=== PATIENT | male | born 1945 | race Caucasian/White ===

== ENCOUNTER 2018-04-02 14:00 | Inpatient (IN) | payer MEDICARE ==
[2018-04-02 15:26] LABS: % BASOPHILS 0.8 % (0.0-2.0); % EOSINOPHILS 6.8 % (0.0-5.0); % LYMPHOCYTES 32.7 % (20.0-50.0); % MONOCYTES 9.8 % (2.0-10.0); % NEUTROPHILS 49.9 % (40.0-80.0); BASOPHILE ABSOLUTE 0.1 Th/cumm (0-0.2); EOSINOPHILE ABSOLUTE 0.5 Th/cmm (0.1-0.4); HEMATOCRIT 42.1 % (41.0-60); HEMOGLOBIN 13.8 gm/dL (12-16); LYMPHOCYTE ABSOLUTE 2.5 Th/cmm (1.5-3.0); MEAN CELL VOLUME 89.4 fl (80-99); MEAN CORPUSCULAR HEMOGLOBIN 29.3 pg (27.0-31.0); MEAN CORPUSCULAR HGB CONC 32.8 pg (28.0-36.0); MONOCYTE ABSOLUTE 0.7 Th/cmm (0.3-1.0); NEUTROPHILE ABSOLUTE 3.7 Th/cmm (1.8-8.0); PLATELET COUNT 275 Th/cmm (150-400); RED BLOOD COUNT 4.71 Mil/cmm (3.80-5.80); RED CELL DISTRIBUTION WIDTH 12.8 % (11.5-20.0); WHITE BLOOD COUNT 7.5 Th/cmm (4.8-10.8)
[2018-04-02 15:46] LABS: ALB/GLOB RATIO 1.5 (1.0-1.8); ALBUMIN 3.5 gm/dL (4.2-5.5); ALKALINE PHOSPHATASE 85 U/L (34-104); ANION GAP 10.3 (7.0-16.0); BILIRUBIN,TOTAL 0.4 mg/dL (0.3-1.0); BUN - UREA NITROGEN 11 mg/dL (7-25); CALCIUM SERUM 8.4 mg/dL (8.6-10.3); CARBON DIOXIDE 25.7 mEq/L (21.0-31.0); CHLORIDE 106 mEq/L (98-107); CHOLESTEROL 72 mg/dL (<200); CREATININE - SERUM 0.7 mg/dL (0.7-1.3); GLUCOSE 101 mg/dL (70-105); HDL -HIGH DENSITY LIPOPROTEIN 22 mg/dL (23-92); SGOT 17 U/L (13-39); SGPT/ALT 18 U/L (7-52); SODIUM SERUM 138 mEq/L (136-145); TOTAL PROTEIN,SERUM 5.9 gm/dL (6.0-8.3); TRIGLYCERIDES 99 mg/dL (<150)
[2018-04-02 15:48] LABS: ACETAMINOPHEN < 10.0 ug/mL (10.0-30.0); SALICYLATES (ASPIRIN) < 25.0 mg/L (30.0-100.0)
--- NOTE | 2018-04-02 15:51 | ED Physician Chart ---
ED Chief Complaint/HPI - Patient Information Date Seen:: 04/02/18 Time Seen:: 14:40 Chief Complaint:: Depression History of Present Illness:: onset x 3 days of depressed behavior; no report of trauma, SIs, H/As, LOC, ALOC , AMS, neck pain, C/P, SOB, Abd. Pain, A/N/V/D/C, fever, chills, or urinary s/s Allergies:: Allergies Allergy/AdvReac Type Severity Reaction Status Date / Time No Known Allergies Allergy Verified 04/02/18 14:40 Vitals:: Vital Signs - 8 hr 04/02/18 04/02/18 14:40 15:04 Temp 98 F 97.8 F HR 60 57 RR 19 15 BP 110/75 O2 Sat % 99 97 Historian:: Patient, EMS Review:: Nurse's Note Reviewed, Old Chart Reviewed, EMS run form Reviewed ED Review of Systems - Review of Systems General/Constitutional: No fever, No chills, No weight loss, No weakness, No diaphoresis, No edema, No loss of appetite Skin: No skin lesions, No rash, No bruising Head: No headache, No light-headedness Eyes: No loss of vision, No pain, No diplopia ENT: No earache, No nasal drainage, No sore throat, No tinnitus Neck: No neck pain, No swelling, No thyromegaly, No stiffness, No mass noted Cardio Vascular: No chest pain, No palpitations, No PND, No orthopnea, No edema Pulmonary: No SOB, No cough, No sputum, No wheezing GI: No nausea, No vomiting, No diarrhea, No pain, No melena, No hematochezia, No constipation, No hematemesis G/U: No dysuria, No frequency, No hematuria, No nacturia Musculoskeletal: No bone or joint pain, No back pain, No muscle pain Endocrine: No polyuria, No polydipsia Psychiatric: Prior psych history, Depression, Anxiety, No suicidal ideation, No homicidal ideation, No auditory hallucination, No visual hallucination Hematopoietic: No bruising, No lymphadenopathy Allergic/Immuno: No urticaria, No angioedema Neurological: No syncope, No focal symptoms, No weakness, No paresthesia, No headache, No seizure, No dizziness, No confusion, No vertigo ED Past Medical History - Past Medical History Obtainable: Yes Past Medical History: HTN, Dyslipidemia Family History: HTN Social History: Non Smoker, No Alcohol, No Drug Use, Single, Care Facility Surgical History: None Psychiatricy History: Depression, Schizophrenia, Bipolar Medication: Reviewed Family Medical History - Family Member Mother History Unknown: Yes ED Physical Exam - Physical Examination General/Constitutional: Awake, Well-developed, well-nourished, Alert, No distress, GCS 15, Non-toxic appearing, Ambulatory Head: Atraumatic Eyes: Lids, conjuctiva normal, PERRL, EOMI Skin: Nl inspection, No rash, No skin lesions, No ecchymosis, Well hydrated, No lymphadenopathy ENMT: External ears, nose nl, TM canals nl, Nasal exam nl, Lips, teeth, gums nl , Oropharynx nl, Tonsils nl Neck: Nontender, Full ROM w/o pain, No JVD, No nuchal rigidity, No bruit, No mass, No stridor Other Neck comments:: no meningeal signs; supple; no cervical tenderness Respiratory: Nl effort/Exclusion, Clear to Auscultation, No Wheeze/Rhonchi/Rales Cardio Vascular: RRR, No murmur, gallop, rubs, NL S1 S2, Carotid/Femoral/Distal pulses equal bilaterally GI: No tenderness/rebounding/guarding, No organomegaly, No hernia, Normal BS's, Nondistended, No mass/bruits, No McBurney tenderness Other GI comments:: no pulsatile masses : No CVA tenderness Extremities: No tenderness or effusion, Full ROM, normal strength in all extremities, No edema, Normal digits & nails Neuro/Psych: Alert/oriented, DTR's symmetric, Normal sensory exam, Normal motor strength, Judgement/insight normal, Mood normal, Normal gait, No focal deficits Other Neuro/Psych comments:: + Psychomotor Retardation; Mood/Affect: Labile; no SIs Misc: Normal back, No paraspinal tenderness ED Labs/Radiology/EKG Results - Lab Results Results: Laboratory Tests 04/02/18 04/02/18 15:18 15:18 WBC 7.5 RBC 4.71 Hgb 13.8 Hct 42.1 MCV 89.4 MCH 29.3 MCHC Differential 32.8 RDW 12.8 Plt Count 275 MPV 8.0 Neutrophils % 49.9 Lymphocytes % 32.7 Monocytes % 9.8 Eosinophils % 6.8 H Basophils % 0.8 Sodium 138 Potassium 4.0 Chloride 106 Carbon Dioxide 25.7 Anion Gap 10.3 BUN 11 Creatinine 0.7 Est GFR ( Amer) TNP Est GFR (Non-Af Amer) TNP BUN/Creatinine Ratio 15.7 Glucose 101 Calcium 8.4 L Total Bilirubin 0.4 AST 17 ALT 18 Alkaline Phosphatase 85 Total Protein 5.9 L Albumin 3.5 L Globulin 2.4 Albumin/Globulin Ratio 1.5 Triglycerides 99 Cholesterol 72 LDL Cholesterol Direct 38 L HDL Cholesterol 22 L Salicylates < 25.0 L Acetaminophen < 10.0 L Ethyl Alcohol < 10 Comments:: Reviewed - EKG Interpretations EKG Time:: 15:35 Rate & Rhythm: 55; SB Comments:: Inverted T-Waves; non-specific st-t changes ED Septic Shock - . Is Septic Shock (SBP<90, OR Lactate>4 mmol\L) present?: No - <6hrs of presentation: Vital Signs: Vital Signs - 8 hr 04/02/18 04/02/18 14:40 15:04 Temp 98 F 97.8 F HR 60 57 RR 19 15 BP 110/75 O2 Sat % 99 97 ED Reassessment (Disposition) - Reassessment Reassessment Condition:: Improved - Diagnosis Diagnosis:: Depression; Psychosis; Medical Clearance; Schizophrenia - Aftercare/Follow up Instructions Aftercare/Follow-Up Instructions:: Counseled pt regarding lab results/diagnosis & need follow up, Counseled pt & family regarding lab results/diagnosis & need follow up - Patient Disposition Discharge/Transfer:: Acute Care w/in this hosp Admitted to:: [facility] Condition at Disposition:: Stable, Improved
[2018-04-02 17:30] LABS: URINE SOURCE CLEAN C
[2018-04-02 17:32] LABS: AMPHETAMINE URINE NEGATIVE (NEGATIVE); BARBITURATES URINE NEGATIVE (NEGATIVE); BENZODIAZEPINES QUAL URINE POSITIVE (NEGATIVE); CANNABINOID THC NEGATIVE (NEGATIVE); COCAINE METABOLITE QUAL URINE NEGATIVE (NEGATIVE); METHADONE URINE NEGATIVE (NEGATIVE); METHAMPHETAMINES QUAL URINE NEGATIVE (NEGATIVE); OPIATES (MORPHINE) QUAL. URINE NEGATIVE (NEGATIVE); PHENCYCLIDINE (PCP) URINE NEGATIVE (NEGATIVE); TRICYCLICS (TCA) QUAL. URINE NEGATIVE (NEGATIVE)
[2018-04-02 17:41] LABS: URINE BILIRUBIN NEGATIVE (NEGATIVE); URINE CLARITY CLEAR (CLEAR); URINE COLOR YELLOW; URINE GLUCOSE (UA) NEGATIVE (NEGATIVE); URINE KETONE NEGATIVE (NEGATIVE)
[2018-04-02 17:42] LABS: URINE BACTERIA FEW /hpf (NONE SEEN); URINE BLOOD NEGATIVE (NEGATIVE); URINE EPITHELIAL CELLS FEW /lpf (FEW); URINE LEUKOCYTE ESTERASE NEGATIVE (NEGATIVE); URINE MICROSCOPIC INDICATED? YES; URINE NITRATE NEGATIVE (NEGATIVE); URINE PROTEIN NEGATIVE (NEGATIVE); URINE RBC 0-2 /hpf (0-5); URINE UROBILINOGEN 0.2 E.U./dL (0.2 - 1.0)
[2018-04-02 21:28] LABS: A1C % 6.1 % (4.0-6.0)
[2018-04-02 22:46] VITALS: BP 106/68
[2018-04-02] MEDS ORDERED: Maalox 30 mL Cup PO PRN (22:55)
[2018-04-03] MEDS: Multivitamin Tab PO SCH (09:45)
--- NOTE | 2018-04-03 15:30 | Psychiatric Evaluation ---
DATE OF SERVICE: 04/02/2018 ADMISSION INITIAL EVALUATION AND MENTAL STATUS EXAM PATIENT'S AGE: 72-year-old. SEX: Male. PHYSICIAN: Pauline Sands MD, MPH CHIEF COMPLAINT: Depression. HISTORY OF PRESENT ILLNESS: The patient is a 72-year-old male who was admitted to the hospital because of increased depression. The patient has been having 3 days of severe depression and also has been complaining of anxiety and withdrawn. The patient also has been feeling hopeless and helpless. He also has been interacting minimally with others. The patient also has ineffective coping and has been having intermittent thoughts of not wanting to live and wants to . The patient also has been having difficulty sleeping at night and has been having periods of disorientation. Also, his appetite is much decreased. PAST PSYCHIATRIC HISTORY: The patient has a history of depression, but he has been taking only Zyprexa. PAST MEDICAL HISTORY: The patient has a history of hypertension. SOCIAL HISTORY: The patient lives in [facility]. No known alcohol or drug use. ALLERGIES: No known allergies. MENTAL STATUS EXAMINATION: The patient appears older than his stated age. Anxious. Sad affect. Depressed mood. Cooperative. Thought processes are mainly goal directed. The patient denies any auditory or visual hallucinations or delusions. The patient denies any current suicidal or homicidal ideations. The patient is alert and oriented to the situation and place but not to date. Impaired immediate memory, but intact recent and remote memories. Poor insight and poor judgment. Seems to be of average intelligence based on his verbal ability. ASSESSMENT: PRIMARY DIAGNOSIS: Major depression, severe, recurrent, without psychotic features. TREATMENT PLAN: We will monitor the patient's behavior closely. We will add Lexapro and will adjust the dose. ESTIMATED LENGTH OF STAY: 5-7 days. THE PATIENT'S STRENGTHS AND WEAKNESSES: The patient's strength is not clear at this time. Weaknesses is ineffective coping. AFTER DISCHARGE PLAN: Outpatient treatment and followup will continue as an outpatient. CRITERIA FOR DISCHARGE: The patient will not be as depressed and will stabilize psychotropic medications and will establish outpatient treatment plans. JOB# [id number]
[2018-04-03] MEDS: Atorvastatin Calcium 10 MG TAB PO SCH (21:06)
[2018-04-04] MEDS: Multivitamin Tab PO SCH (09:51)
[2018-04-04] MEDS: Atorvastatin Calcium 10 MG TAB PO SCH (21:38)
--- NOTE | 2018-04-05 01:30 | Progress Notes ---
DATE: 04/04/2018 PSYCHIATRIC PROGRESS NOTE SUBJECTIVE: Chart reviewed and the patient interviewed. Also discussed the patient's condition with the staff and reviewed records and labs. The patient is still severely depressed and withdrawn. The patient also is interacting minimally with peers and others. He also is still feeling hopeless and helpless. The patient also is guarded. Otherwise, the patient is compliant with treatment and compliant with taking his medications with no side effects of medications. ASSESSMENT: The patient is still in a depressed mood. TREATMENT PLAN: Continue to monitor his behavior and his condition closely. Also, continue Lexapro at same dose. Also, continue to work on his ineffective coping and followup. JOB# [id number]
[2018-04-05] MEDS: Multivitamin Tab PO SCH (08:11)
[2018-04-05] MEDS: Escitalopram Oxalate 5 mg Tab PO SCH (08:12)
--- NOTE | 2018-04-05 09:58 | Progress Notes ---
DATE: 04/05/2018 SUBJECTIVE: A 72-year-old male admitted to the hospital because of worsening severe depression, complaining of anxiety, hopeless and helpless illness, minimally interactive and ineffective coping. The patient slept for about 6-7 hours. No agitation noted to be confused, sometimes withdrawn. AO to name, place, not year, not month, mostly isolative in his room. ASSESSMENT: The patient remains symptomatic, confused, withdrawn bouts of anger or agitation. PLAN: We will continue to monitor. Medications were noted, currently on Zyprexa. No overt side effects. JOB# [id number]
[2018-04-05] MEDS: Atorvastatin Calcium 10 MG TAB PO SCH (21:10)
--- NOTE | 2018-04-06 07:02 | Progress Notes ---
DATE: 04/06/2018 SUBJECTIVE: A 72-year-old male here because of worsening depression, isolation, hopelessness, despair. The patient to continuing to attest to depression, social withdrawal, pleasant upon approach, but somewhat confused, still attesting to depression, sadness. Sleeping fairly well, eating fairly well. The patient was in group room yesterday, but not participating games. ASSESSMENT: The patient remains symptomatic, depressed, and ongoing concerns about his level of depression. PLAN: We will continue Lexapro, given his ongoing symptoms, there are continued safety concerns. Increase socialization was recommended. PSYCHIATRIC# [id number]
[2018-04-06] MEDS: Multivitamin Tab PO SCH (08:37)
[2018-04-06] MEDS: Escitalopram Oxalate 5 mg Tab PO SCH (08:37)
--- NOTE | 2018-04-06 13:06 | General Progress Note ---
Subjective - Review of Systems Events since last encounter: patient is withdrawn depressed no cp,sob Objective - Results Result Diagrams: 04/02/18 15:18 04/02/18 15:18 Recent Labs: Laboratory Last Values WBC 7.5 Th/cmm (4.8-10.8) 04/02/18 15:18 RBC 4.71 Mil/cmm (3.80-5.80) 04/02/18 15:18 Hgb 13.8 gm/dL (12-16) 04/02/18 15:18 Hct 42.1 % (41.0-60) 04/02/18 15:18 MCV 89.4 fl (80-99) 04/02/18 15:18 MCH 29.3 pg (27.0-31.0) 04/02/18 15:18 MCHC Differential 32.8 pg (28.0-36.0) 04/02/18 15:18 RDW 12.8 % (11.5-20.0) 04/02/18 15:18 Plt Count 275 Th/cmm (150-400) 04/02/18 15:18 MPV 8.0 fl 04/02/18 15:18 Neutrophils % 49.9 % (40.0-80.0) 04/02/18 15:18 Lymphocytes % 32.7 % (20.0-50.0) 04/02/18 15:18 Monocytes % 9.8 % (2.0-10.0) 04/02/18 15:18 Eosinophils % 6.8 % (0.0-5.0) H 04/02/18 15:18 Basophils % 0.8 % (0.0-2.0) 04/02/18 15:18 Sodium 138 mEq/L (136-145) 04/02/18 15:18 Potassium 4.0 mEq/L (3.5-5.1) 04/02/18 15:18 Chloride 106 mEq/L (98-107) 04/02/18 15:18 Carbon Dioxide 25.7 mEq/L (21.0-31.0) 04/02/18 15:18 Anion Gap 10.3 (7.0-16.0) 04/02/18 15:18 BUN 11 mg/dL (7-25) 04/02/18 15:18 Creatinine 0.7 mg/dL (0.7-1.3) 04/02/18 15:18 Est GFR ( Amer) TNP 04/02/18 15:18 Est GFR (Non-Af Amer) TNP 04/02/18 15:18 BUN/Creatinine Ratio 15.7 04/02/18 15:18 Glucose 101 mg/dL (70-105) 04/02/18 15:18 POC Glucose 100 MG/DL (70 - 105) 04/03/18 03:12 Hemoglobin A1c % 6.1 % (4.0-6.0) H 04/02/18 15:18 Calcium 8.4 mg/dL (8.6-10.3) L 04/02/18 15:18 Total Bilirubin 0.4 mg/dL (0.3-1.0) 04/02/18 15:18 AST 17 U/L (13-39) 04/02/18 15:18 ALT 18 U/L (7-52) 04/02/18 15:18 Alkaline Phosphatase 85 U/L (34-104) 04/02/18 15:18 Troponin I 0.02 ng/mL (0.01-0.05) 04/02/18 15:18 Total Protein 5.9 gm/dL (6.0-8.3) L 04/02/18 15:18 Albumin 3.5 gm/dL (4.2-5.5) L 04/02/18 15:18 Globulin 2.4 gm/dL 04/02/18 15:18 Albumin/Globulin Ratio 1.5 (1.0-1.8) 04/02/18 15:18 Triglycerides 99 mg/dL (<150) 04/02/18 15:18 Cholesterol 72 mg/dL (<200) 04/02/18 15:18 LDL Cholesterol Direct 38 mg/dL (75-193) L 04/02/18 15:18 HDL Cholesterol 22 mg/dL (23-92) L 04/02/18 15:18 TSH 1.06 uIU/ml (0.34-5.60) 04/02/18 15:18 Urine Source CLEAN C 04/02/18 16:00 Urine Color YELLOW 04/02/18 16:00 Urine Clarity CLEAR (CLEAR) 04/02/18 16:00 Urine pH 6.0 (4.6 - 8.0) 04/02/18 16:00 Ur Specific [place] < -1.005 (1.005-1.030) L 04/02/18 16:00 Urine Protein NEGATIVE mg/dL (NEGATIVE) 04/02/18 16:00 Urine Glucose (UA) NEGATIVE mg/dL (NEGATIVE) 04/02/18 16:00 Urine Ketones NEGATIVE mg/dL (NEGATIVE) 04/02/18 16:00 Urine Blood NEGATIVE (NEGATIVE) 04/02/18 16:00 Urine Nitrate NEGATIVE (NEGATIVE) 04/02/18 16:00 Urine Bilirubin NEGATIVE (NEGATIVE) 04/02/18 16:00 Urine Urobilinogen 0.2 E.U./dL (0.2 - 1.0) 04/02/18 16:00 Ur Leukocyte Esterase NEGATIVE (NEGATIVE) 04/02/18 16:00 Urine RBC 0-2 /hpf (0-5) H 04/02/18 16:00 Urine WBC 2-5 /hpf (0-5) 04/02/18 16:00 Ur Epithelial Cells FEW /lpf (FEW) 04/02/18 16:00 Urine Bacteria FEW /hpf (NONE SEEN) 04/02/18 16:00 Urine Mucus MODERATE /lpf (FEW) 04/02/18 16:00 Salicylates < 25.0 mg/L (30.0-100.0) L 04/02/18 15:18 Urine Opiates Screen NEGATIVE (NEGATIVE) 04/02/18 16:00 Urine Methadone Screen NEGATIVE (NEGATIVE) 04/02/18 16:00 Acetaminophen < 10.0 ug/mL (10.0-30.0) L 04/02/18 15:18 Ur Barbiturates Screen NEGATIVE (NEGATIVE) 04/02/18 16:00 Ur Tricyclics Screen NEGATIVE (NEGATIVE) 04/02/18 16:00 Ur Phencyclidine Scrn NEGATIVE (NEGATIVE) 04/02/18 16:00 Amphetamines Screen NEGATIVE (NEGATIVE) 04/02/18 16:00 U Methamphetamines Scrn NEGATIVE (NEGATIVE) 04/02/18 16:00 U Benzodiazepines Scrn POSITIVE (NEGATIVE) H 04/02/18 16:00 U Cocaine Metab Screen NEGATIVE (NEGATIVE) 04/02/18 16:00 U Cannabinoids Screen NEGATIVE (NEGATIVE) 04/02/18 16:00 Ethyl Alcohol < 10 mg/dL (0-10) 04/02/18 15:18 RPR NONREACTIVE (NONREACTIVE) 04/02/18 15:18 - Physical Exam Vitals and I&O: Vital Signs Temp 98.1 F 04/06/18 06:37 Pulse 69 04/06/18 08:38 Resp 17 04/06/18 10:26 BP 111/72 04/06/18 08:38 Pulse Ox 98 04/06/18 06:37 Intake & Output 04/05/18 04/06/18 04/06/18 18:59 06:59 18:59 Intake Total 1000 Balance 1000 Intake: Oral 1000 Other: # Voids 4 # Bowel Movements 1 Stool Characteristics Soft Formed Active Medications: Current Medications Acetaminophen (Tylenol) 650 mg PO Q4HR PRN PRN Reason: Mild Pain / Temp above 100 Stop: 06/01/18 22:54 Acetaminophen (Tylenol) 325 mg PO Q4HR PRN PRN Reason: Pain (Mild) Stop: 06/01/18 23:19 Al Hydrox/Mg Hydrox/Simethicone (Maalox) 30 ml PO Q4HR PRN PRN Reason: GI DISTRESS Stop: 06/01/18 22:54 Atorvastatin Calcium (Lipitor) 20 mg PO HS ASHLEY Stop: 06/02/18 20:59 Last Admin: 04/05/18 21:10 Dose: 20 mg Escitalopram Oxalate (Lexapro) 5 mg PO DAILY [facility]; Protocol Stop: 06/03/18 08:59 Last Admin: 04/06/18 08:37 Dose: 5 mg Lisinopril (Zestril) 5 mg PO DAILY ASHLEY Stop: 06/02/18 08:59 Last Admin: 04/06/18 08:38 Dose: 5 mg Lorazepam (Ativan) 0.5 mg PO Q4HR PRN; Protocol PRN Reason: Anxiety Stop: 05/02/18 22:54 Metoprolol Tartrate (Lopressor) 25 mg PO DAILY [facility] Stop: 06/02/18 08:59 Last Admin: 04/06/18 08:38 Dose: 25 mg Multivitamins/Vitamin C (Theragran) 1 tab PO DAILY [facility] Stop: 06/02/18 08:59 Last Admin: 04/06/18 08:37 Dose: 1 tab Olanzapine (Zyprexa) 5 mg PO DAILY [facility]; Protocol Stop: 06/02/18 08:59 Last Admin: 04/06/18 08:37 Dose: 5 mg Zolpidem Tartrate (Ambien) 5 mg PO HS PRN PRN Reason: Insomnia Stop: 06/01/18 22:54
[2018-04-06] MEDS: Atorvastatin Calcium 10 MG TAB PO SCH (20:26)
[2018-04-07] MEDS: Multivitamin Tab PO SCH (09:27)
[2018-04-07] MEDS: Escitalopram Oxalate 5 mg Tab PO SCH (09:27)
--- NOTE | 2018-04-07 16:43 | Internal Medicine Prog Note ---
Internal Medicine Objective - Results Result Diagrams: 04/02/18 15:18 04/02/18 15:18 Recent Labs: Laboratory Last Values WBC 7.5 Th/cmm (4.8-10.8) 04/02/18 15:18 RBC 4.71 Mil/cmm (3.80-5.80) 04/02/18 15:18 Hgb 13.8 gm/dL (12-16) 04/02/18 15:18 Hct 42.1 % (41.0-60) 04/02/18 15:18 MCV 89.4 fl (80-99) 04/02/18 15:18 MCH 29.3 pg (27.0-31.0) 04/02/18 15:18 MCHC Differential 32.8 pg (28.0-36.0) 04/02/18 15:18 RDW 12.8 % (11.5-20.0) 04/02/18 15:18 Plt Count 275 Th/cmm (150-400) 04/02/18 15:18 MPV 8.0 fl 04/02/18 15:18 Neutrophils % 49.9 % (40.0-80.0) 04/02/18 15:18 Lymphocytes % 32.7 % (20.0-50.0) 04/02/18 15:18 Monocytes % 9.8 % (2.0-10.0) 04/02/18 15:18 Eosinophils % 6.8 % (0.0-5.0) H 04/02/18 15:18 Basophils % 0.8 % (0.0-2.0) 04/02/18 15:18 Sodium 138 mEq/L (136-145) 04/02/18 15:18 Potassium 4.0 mEq/L (3.5-5.1) 04/02/18 15:18 Chloride 106 mEq/L (98-107) 04/02/18 15:18 Carbon Dioxide 25.7 mEq/L (21.0-31.0) 04/02/18 15:18 Anion Gap 10.3 (7.0-16.0) 04/02/18 15:18 BUN 11 mg/dL (7-25) 04/02/18 15:18 Creatinine 0.7 mg/dL (0.7-1.3) 04/02/18 15:18 Est GFR ( Amer) TNP 04/02/18 15:18 Est GFR (Non-Af Amer) TNP 04/02/18 15:18 BUN/Creatinine Ratio 15.7 04/02/18 15:18 Glucose 101 mg/dL (70-105) 04/02/18 15:18 POC Glucose 100 MG/DL (70 - 105) 04/03/18 03:12 Hemoglobin A1c % 6.1 % (4.0-6.0) H 04/02/18 15:18 Calcium 8.4 mg/dL (8.6-10.3) L 04/02/18 15:18 Total Bilirubin 0.4 mg/dL (0.3-1.0) 04/02/18 15:18 AST 17 U/L (13-39) 04/02/18 15:18 ALT 18 U/L (7-52) 04/02/18 15:18 Alkaline Phosphatase 85 U/L (34-104) 04/02/18 15:18 Troponin I 0.02 ng/mL (0.01-0.05) 04/02/18 15:18 Total Protein 5.9 gm/dL (6.0-8.3) L 04/02/18 15:18 Albumin 3.5 gm/dL (4.2-5.5) L 04/02/18 15:18 Globulin 2.4 gm/dL 04/02/18 15:18 Albumin/Globulin Ratio 1.5 (1.0-1.8) 04/02/18 15:18 Triglycerides 99 mg/dL (<150) 04/02/18 15:18 Cholesterol 72 mg/dL (<200) 04/02/18 15:18 LDL Cholesterol Direct 38 mg/dL (75-193) L 04/02/18 15:18 HDL Cholesterol 22 mg/dL (23-92) L 04/02/18 15:18 TSH 1.06 uIU/ml (0.34-5.60) 04/02/18 15:18 Urine Source CLEAN C 04/02/18 16:00 Urine Color YELLOW 04/02/18 16:00 Urine Clarity CLEAR (CLEAR) 04/02/18 16:00 Urine pH 6.0 (4.6 - 8.0) 04/02/18 16:00 Ur Specific [place] < -1.005 (1.005-1.030) L 04/02/18 16:00 Urine Protein NEGATIVE mg/dL (NEGATIVE) 04/02/18 16:00 Urine Glucose (UA) NEGATIVE mg/dL (NEGATIVE) 04/02/18 16:00 Urine Ketones NEGATIVE mg/dL (NEGATIVE) 04/02/18 16:00 Urine Blood NEGATIVE (NEGATIVE) 04/02/18 16:00 Urine Nitrate NEGATIVE (NEGATIVE) 04/02/18 16:00 Urine Bilirubin NEGATIVE (NEGATIVE) 04/02/18 16:00 Urine Urobilinogen 0.2 E.U./dL (0.2 - 1.0) 04/02/18 16:00 Ur Leukocyte Esterase NEGATIVE (NEGATIVE) 04/02/18 16:00 Urine RBC 0-2 /hpf (0-5) H 04/02/18 16:00 Urine WBC 2-5 /hpf (0-5) 04/02/18 16:00 Ur Epithelial Cells FEW /lpf (FEW) 04/02/18 16:00 Urine Bacteria FEW /hpf (NONE SEEN) 04/02/18 16:00 Urine Mucus MODERATE /lpf (FEW) 04/02/18 16:00 Salicylates < 25.0 mg/L (30.0-100.0) L 04/02/18 15:18 Urine Opiates Screen NEGATIVE (NEGATIVE) 04/02/18 16:00 Urine Methadone Screen NEGATIVE (NEGATIVE) 04/02/18 16:00 Acetaminophen < 10.0 ug/mL (10.0-30.0) L 04/02/18 15:18 Ur Barbiturates Screen NEGATIVE (NEGATIVE) 04/02/18 16:00 Ur Tricyclics Screen NEGATIVE (NEGATIVE) 04/02/18 16:00 Ur Phencyclidine Scrn NEGATIVE (NEGATIVE) 04/02/18 16:00 Amphetamines Screen NEGATIVE (NEGATIVE) 04/02/18 16:00 U Methamphetamines Scrn NEGATIVE (NEGATIVE) 04/02/18 16:00 U Benzodiazepines Scrn POSITIVE (NEGATIVE) H 04/02/18 16:00 U Cocaine Metab Screen NEGATIVE (NEGATIVE) 04/02/18 16:00 U Cannabinoids Screen NEGATIVE (NEGATIVE) 04/02/18 16:00 Ethyl Alcohol < 10 mg/dL (0-10) 04/02/18 15:18 RPR NONREACTIVE (NONREACTIVE) 04/02/18 15:18 - Physical Exam Vitals and I&O: Vital Signs Temp 98.1 F 04/07/18 14:00 Pulse 67 04/07/18 14:00 Resp 20 04/07/18 14:00 BP 99/59 04/07/18 14:00 Pulse Ox 97 04/07/18 14:00 Intake & Output 04/06/18 04/07/18 04/07/18 18:59 06:59 18:59 Intake Total 800 120 Balance 800 120 Intake: Oral 800 120 Other: # Voids 3 3 # Bowel Movements 1 Stool Characteristics Soft Soft Soft Formed Formed Formed Active Medications: Current Medications Acetaminophen (Tylenol) 650 mg PO Q4HR PRN PRN Reason: Mild Pain / Temp above 100 Stop: 06/01/18 22:54 Acetaminophen (Tylenol) 325 mg PO Q4HR PRN PRN Reason: Pain (Mild) Stop: 06/01/18 23:19 Al Hydrox/Mg Hydrox/Simethicone (Maalox) 30 ml PO Q4HR PRN PRN Reason: GI DISTRESS Stop: 06/01/18 22:54 Atorvastatin Calcium (Lipitor) 20 mg PO HS ASHLEY Stop: 06/02/18 20:59 Last Admin: 04/06/18 20:26 Dose: 20 mg Escitalopram Oxalate (Lexapro) 5 mg PO DAILY [facility]; Protocol Stop: 06/03/18 08:59 Last Admin: 04/07/18 09:27 Dose: 5 mg Lisinopril (Zestril) 5 mg PO DAILY [facility] Stop: 06/02/18 08:59 Last Admin: 04/07/18 09:26 Dose: 5 mg Lorazepam (Ativan) 0.5 mg PO Q4HR PRN; Protocol PRN Reason: Anxiety Stop: 05/02/18 22:54 Metoprolol Tartrate (Lopressor) 25 mg PO DAILY [facility] Stop: 06/02/18 08:59 Last Admin: 04/07/18 09:26 Dose: 25 mg Multivitamins/Vitamin C (Theragran) 1 tab PO DAILY [facility] Stop: 06/02/18 08:59 Last Admin: 04/07/18 09:27 Dose: 1 tab Olanzapine (Zyprexa) 5 mg PO DAILY [facility]; Protocol Stop: 06/02/18 08:59 Last Admin: 04/07/18 09:27 Dose: 5 mg Zolpidem Tartrate (Ambien) 5 mg PO HS PRN PRN Reason: Insomnia Stop: 06/01/18 22:54
--- NOTE | 2018-04-08 18:27 | Discharge Summary ---
DATE OF DISCHARGE: 04/07/2018 FINAL DIAGNOSIS AND PRIMARY DIAGNOSIS: Major depression, severe, recurrent, without psychotic features. REASON FOR HOSPITALIZATION: The patient was admitted to the hospital because of depression and because of severe anxiety. The patient also was withdrawn and is feeling hopeless and helpless and interacting minimally with others. HOSPITAL COURSE: The patient continued to be in depressed mood and withdrawn. The patient also was interacting minimally with others. The patient was started on Lexapro was at 5 mg every day. Gradually, the patient's affect was brighter. The patient was less depressed. He also was interacting more. He denies any thoughts of suicide or homicide and the patient was discharged from the hospital. Physical examination of the patient showed that the patient has hypertension, but the patient had no major medical problems while in the hospital. AFTER DISCHARGE PLANS: The patient discharged from the hospital and continued to take Zyprexa and Lexapro with [facility]. EXPECTED OUTCOME AFTER DISCHARGE: Fair if the patient continues with his outpatient treatment and comply with taking his medications. [facility]# [id number]
--- NOTE | 2018-04-11 16:17 | History & Physical ---
ADMIT DATE: 04/02/2018 CHIEF COMPLAINT: The patient was complaining of severe depression and the patient was admitted to Geropsych unit. HISTORY OF PRESENT ILLNESS: The patient has 3-day onset of history of change behavior, depression, altered mental status, who came through the Emergency Room and was admitted after clearing the patient for medically. The patient is a poor historian. The patient . REVIEW OF SYSTEMS: System review was otherwise negative. PAST MEDICAL HISTORY: 1. Hypertension. 2. Hyperlipidemia. PHYSICAL EXAMINATION: GENERAL: Alert, oriented, awake patient, not in acute distress. VITAL SIGNS: Stable. HEAD: Normal. ENT: Normal. NECK: Supple, nontender. LUNGS: Clear. CARDIOVASCULAR SYSTEM: S1, S2 heard. ABDOMEN: Soft. Bowel sounds are heard. DIAGNOSES: History of hypertension, history of hyperlipidemia, psychomotor problems and history of psychosis. PLAN: The patient is admitted. I will follow the patient medically and psychiatrist as well follow him psych morris. [facility]# [id number]
== END 2018-04-07 17:20 | DRG 885 ==
LOC: ER 14:00 → GERO 18:00
PROVIDERS: ADMIT Psychiatry & Neurology Psychiatry; ATTEND Psychiatry & Neurology Psychiatry
DX: F33.2 Major depressive disorder, recurrent severe without psychotic features (principal); I10 Essential (primary) hypertension; E78.5 Hyperlipidemia, unspecified; F20.9 Schizophrenia, unspecified; F29 Unspecified psychosis not due to a substance or known physiological condition; Z82.49 Family history of ischemic heart disease and other diseases of the circulatory system
CPT/HCPCS: 36415-UA; 80053-TC; 80061-TC; 80307; 80320-TC; 80329-TC; 81001-TC; 82948-90; 83036-90; 84443-TC; 84484-TC; 85025-TC; 86592-TC; 93005; J7051

== ENCOUNTER 2018-07-29 16:42 | Inpatient (IN) | payer MEDICAID, MEDICARE ==
--- NOTE | 2018-07-29 17:19 | ED Physician Chart ---
ED Chief Complaint/HPI - Patient Information Date Seen:: 07/29/18 Time Seen:: 17:00 Chief Complaint:: Agitation History of Present Illness:: onset x 3 days of agitation and combative behavior; no report of trauma, SIs, LOC, ALOC, AMS, H/As, S/T, neck pain, cough, C/P, SOB, Abd. Pain, A/N/V/D/C, fever, chills, or urinary s/s Allergies:: Allergies Allergy/AdvReac Type Severity Reaction Status Date / Time No Known Allergies Allergy Verified 07/29/18 17:08 Vitals:: Vital Signs - 8 hr 07/29/18 17:08 Temp 96.9 F HR 74 RR 18 BP 124/90 O2 Sat % 97 Historian:: Patient Review:: Nurse's Note Reviewed, Old Chart Reviewed <Pedro Ramirez - Last Filed: 07/29/18 18:11> - Patient Information Allergies:: Allergies Allergy/AdvReac Type Severity Reaction Status Date / Time No Known Allergies Allergy Verified 07/29/18 17:08 <Dang Conley - Last Filed: 07/30/18 09:40> ED Review of Systems - Review of Systems General/Constitutional: No fever, No chills, No weight loss, No weakness, No diaphoresis, No edema, No loss of appetite Skin: No skin lesions, No rash, No bruising Head: No headache, No light-headedness Eyes: No loss of vision, No pain, No diplopia ENT: No earache, No nasal drainage, No sore throat, No tinnitus Neck: No neck pain, No swelling, No thyromegaly, No stiffness, No mass noted Cardio Vascular: No chest pain, No palpitations, No PND, No orthopnea, No edema Pulmonary: No SOB, No cough, No sputum, No wheezing GI: No nausea, No vomiting, No diarrhea, No pain, No melena, No hematochezia, No constipation, No hematemesis G/U: No dysuria, No frequency, No hematuria, No nacturia Musculoskeletal: No bone or joint pain, No back pain, No muscle pain Endocrine: No polyuria, No polydipsia Psychiatric: Prior psych history, Depression, Anxiety, No suicidal ideation, No homicidal ideation, Auditory hallucination, No visual hallucination Hematopoietic: No bruising, No lymphadenopathy Allergic/Immuno: No urticaria, No angioedema Neurological: No syncope, No focal symptoms, No weakness, No paresthesia, No headache, No seizure, No dizziness, Confusion, No vertigo <Pedro Ramirez - Last Filed: 07/29/18 18:11> ED Past Medical History - Past Medical History Obtainable: Yes Past Medical History: HTN, Dementia Family History: HTN Social History: Non Smoker, No Alcohol, No Drug Use, Single, Care Facility Surgical History: None Psychiatricy History: Depression, Schizophrenia, Bipolar, Dementia Medication: Reviewed <Pedro Ramirez - Last Filed: 07/29/18 18:11> Family Medical History - Family Member Mother History Unknown: Yes Ethnicity: Unknown Living Status: Unknown Hx Family Cancer: No (Unknown) Hx Family Coronary Artery Disease: No (Unknown) Hx Family Congestive Heart Failure: No (unknown) Hx Family Hypertension: No (unhknown) Hx Family Stroke: No (unknown) Hx Family Diabetes: No (Unknown) Hx Family Seizures: No (unknown) Hx Family Dementia: No (unknown) Hx Family AIDS: No (Unknown) Hx Family HIV: No Hx Family COPD: No (unknown) Hx Family Hepatitis: No (Unknown) Hx Family Psychiatric Problems: No (unknown) Hx Family Tuberculosis: No (unknown) <Pedro Ramirez - Last Filed: 07/29/18 18:11> ED Physical Exam - Physical Examination General/Constitutional: Awake, Well-developed, well-nourished, Alert, No distress, GCS 15, Non-toxic appearing, Ambulatory Head: Atraumatic Eyes: Lids, conjuctiva normal, PERRL, EOMI Skin: Nl inspection, No rash, No skin lesions, No ecchymosis, Well hydrated, No lymphadenopathy ENMT: External ears, nose nl, TM canals nl, Nasal exam nl, Lips, teeth, gums nl , Oropharynx nl, Tonsils nl Neck: Nontender, Full ROM w/o pain, No JVD, No nuchal rigidity, No bruit, No mass, No stridor Respiratory: Nl effort/Exclusion, Clear to Auscultation, No Wheeze/Rhonchi/Rales Cardio Vascular: RRR, No murmur, gallop, rubs, NL S1 S2, Carotid/Femoral/Distal pulses equal bilaterally GI: No tenderness/rebounding/guarding, No organomegaly, No hernia, Normal BS's, Nondistended, No mass/bruits, No McBurney tenderness Other GI comments:: no pulsatile masses : No CVA tenderness Extremities: No tenderness or effusion, Full ROM, normal strength in all extremities, No edema, Normal digits & nails Neuro/Psych: Alert/oriented, DTR's symmetric, Normal sensory exam, Normal motor strength, Judgement/insight normal, Mood normal, Normal gait, No focal deficits Other Neuro/Psych comments:: MSE: + Psychomotor Agitation; no SIs; Mood/Affect: Labile Misc: Normal back, No paraspinal tenderness <Pedro Ramirez - Last Filed: 07/29/18 18:11> ED Labs/Radiology/EKG Results - Lab Results Comments:: Reviewed - EKG Interpretations EKG Time:: 17:46 Rate & Rhythm: 64; NSR Comments:: PACs; RBBB; non-specific st-t changes <Pedro Ramirez - Last Filed: 07/29/18 18:11> - Lab Results Results: Laboratory Tests 07/29/18 07/29/18 07/29/18 17:42 17:42 17:42 WBC 6.8 RBC 4.82 Hgb 14.2 Hct 43.9 MCV 91.0 MCH 29.4 MCHC Differential 32.4 RDW 13.9 Plt Count 257 MPV 8.1 Neutrophils % 52.9 Lymphocytes % 33.1 Monocytes % 11.5 H Eosinophils % 1.3 Basophils % 1.2 Sodium 139 Potassium 3.6 Chloride 105 Carbon Dioxide 23.4 Anion Gap 14.2 BUN 14 Creatinine 0.7 Est GFR ( Amer) TNP Est GFR (Non-Af Amer) TNP BUN/Creatinine Ratio 20.0 Glucose 104 Calcium 9.2 Total Bilirubin 0.7 AST 20 ALT 16 Alkaline Phosphatase 68 Troponin I Total Protein 6.5 Albumin 3.7 L Globulin 2.8 Albumin/Globulin Ratio 1.3 Triglycerides 56 Cholesterol 98 LDL Cholesterol Direct 53 L HDL Cholesterol 35 TSH 1.18 Salicylates < 25.0 L Acetaminophen < 10.0 L Ethyl Alcohol < 10 07/29/18 17:42 WBC RBC Hgb Hct MCV MCH MCHC Differential RDW Plt Count MPV Neutrophils % Lymphocytes % Monocytes % Eosinophils % Basophils % Sodium Potassium Chloride Carbon Dioxide Anion Gap BUN Creatinine Est GFR ( Amer) Est GFR (Non-Af Amer) BUN/Creatinine Ratio Glucose Calcium Total Bilirubin AST ALT Alkaline Phosphatase Troponin I 0.01 Total Protein Albumin Globulin Albumin/Globulin Ratio Triglycerides Cholesterol LDL Cholesterol Direct HDL Cholesterol TSH Salicylates Acetaminophen Ethyl Alcohol - Radiology Results Results: CXR: no focal consolidation <Dang Conley - Last Filed: 07/30/18 09:40> ED Septic Shock - . Is Septic Shock (SBP<90, OR Lactate>4 mmol\L) present?: No - <6hrs of presentation: Vital Signs: Vital Signs - 8 hr 07/29/18 17:08 Temp 96.9 F HR 74 RR 18 BP 124/90 O2 Sat % 97 <Pedro Ramirez - Last Filed: 07/29/18 18:11> ED Reassessment (Disposition) - Reassessment Reassessment Condition:: Improved - Diagnosis Diagnosis:: Dx: Agitation; Psychosis; Medical Clearance; Bipolar Disorder <Pedro Ramirez - Last Filed: 07/29/18 18:11> - Reassessment Reassessment:: Hypertension Schizophrenia Bipolar disorder Dementia Psychosis Plan: Admit to [facility] for further evaluation and management Reassessment Condition:: Improved - Patient Disposition Discharge/Transfer:: Ruby garcia/in this hosp Admitting Medical Physician:: Cruz Minaya Admitting Psych Physician:: Pauline Sands <Dang Conley - Last Filed: 07/30/18 09:40>
[2018-07-29 17:54] LABS: % BASOPHILS 1.2 % (0.0-2.0); % EOSINOPHILS 1.3 % (0.0-5.0); % LYMPHOCYTES 33.1 % (20.0-50.0); % MONOCYTES 11.5 % (2.0-10.0); % NEUTROPHILS 52.9 % (40.0-80.0); BASOPHILE ABSOLUTE 0.1 Th/cumm (0-0.2); EOSINOPHILE ABSOLUTE 0.1 Th/cmm (0.1-0.4); HEMATOCRIT 43.9 % (41.0-60); HEMOGLOBIN 14.2 gm/dL (12-16); LYMPHOCYTE ABSOLUTE 2.3 Th/cmm (1.5-3.0); MEAN CORPUSCULAR HEMOGLOBIN 29.4 pg (27.0-31.0); MEAN CORPUSCULAR HGB CONC 32.4 pg (28.0-36.0); MEAN PLATELET VOLUME 8.1 fl; MONOCYTE ABSOLUTE 0.8 Th/cmm (0.3-1.0); NEUTROPHILE ABSOLUTE 3.5 Th/cmm (1.8-8.0); PLATELET COUNT 257 Th/cmm (150-400); RED BLOOD COUNT 4.82 Mil/cmm (3.80-5.80); RED CELL DISTRIBUTION WIDTH 13.9 % (11.5-20.0); WHITE BLOOD COUNT 6.8 Th/cmm (4.8-10.8)
[2018-07-29 18:10] LABS: ALB/GLOB RATIO 1.3 (1.0-1.8); ALBUMIN 3.7 gm/dL (4.2-5.5); ALKALINE PHOSPHATASE 68 U/L (34-104); ANION GAP 14.2 (7.0-16.0); BILIRUBIN,TOTAL 0.7 mg/dL (0.3-1.0); BUN - UREA NITROGEN 14 mg/dL (7-25); CALCIUM SERUM 9.2 mg/dL (8.6-10.3); CARBON DIOXIDE 23.4 mEq/L (21.0-31.0); CHLORIDE 105 mEq/L (98-107); CHOLESTEROL 98 mg/dL (<200); CREATININE - SERUM 0.7 mg/dL (0.7-1.3); GLUCOSE 104 mg/dL (70-105); HDL -HIGH DENSITY LIPOPROTEIN 35 mg/dL (23-92); POTASSIUM SERUM 3.6 mEq/L (3.5-5.1); SGOT 20 U/L (13-39); SGPT/ALT 16 U/L (7-52); SODIUM SERUM 139 mEq/L (136-145); TOTAL PROTEIN,SERUM 6.5 gm/dL (6.0-8.3); TRIGLYCERIDES 56 mg/dL (<150)
[2018-07-29 19:08] LABS: ACETAMINOPHEN < 10.0 ug/mL (10.0-30.0); SALICYLATES (ASPIRIN) < 25.0 mg/L (30.0-100.0)
[2018-07-29] MEDS ORDERED: Maalox 30 mL Cup PO PRN (21:32)
[2018-07-29] MEDS ORDERED: Magnesium Hydroxide (MOM) 30 mL UDC PO PRN (21:32)
--- NOTE | 2018-07-30 08:53 | Diagnostic Imaging Report ---
CHEST X-RAY: AP view INDICATION: Shortness of breath COMPARISON: None FINDINGS: Mild chronic lung changes are seen with suboptimal lung volumes. Right midlung calcification, probable scarring is noted laterally. Heart size is normal. Tortuous aorta is noted. Degenerative changes of spine are noted with scoliosis. There is a compression deformity of a lower thoracic vertebral body. IMPRESSION: No focal consolidation identified. Degenerative changes of the spine with spinal scoliosis. There is a compression deformity of a lower thoracic vertebral body. Please correlate with clinical findings and old exams. If indicated, follow up x-rays may be obtained for further assessment Tortuous aorta.
[2018-07-30] MEDS: Multivitamin Tab PO SCH (09:04)
[2018-07-30] MEDS: Escitalopram Oxalate 5 mg Tab PO SCH (09:04)
--- NOTE | 2018-07-30 19:58 | History & Physical ---
ADMIT DATE: 07/30/2018 CHIEF COMPLAINT: Agitation. HISTORY OF PRESENT ILLNESS: The patient is a 72-year-old male with a past medical history of hypertension, dementia, brought in from nursing facility for agitation. Retired combative behavior also. No fever, no chills. No cough, no shortness of breath, chest pain. PAST MEDICAL HISTORY: Includes hypertension and dementia. ALLERGIES: NKDA. MEDICATIONS: As per medication reconciliation sheet. FAMILY HISTORY: Hypertension. SOCIAL HISTORY: The patient lives at a care facility. Single. No smoking, no alcohol, no drug use. PAST SURGICAL HISTORY: None. PSYCHIATRIC HISTORY: Depression, schizophrenia, bipolar disorder, and dementia. REVIEW OF SYSTEMS: GENERAL: The patient has no fever, no chills. HEENT: No diplopia, no photophobia, no sore throat. RESPIRATORY: No cough, no shortness of breath. CARDIOVASCULAR: No chest pain or palpitation. GASTROINTESTINAL: No nausea, no vomiting, no diarrhea, no constipation. GENITOURINARY: No dysuria. NEUROLOGIC: No headache, no dizziness, no focal weakness. PHYSICAL EXAMINATION: GENERAL: The patient is comfortable, not in acute distress. VITAL SIGNS: Shows temperature is 97.7 degrees Fahrenheit, pulse 81, respirations 18, blood pressure 106/67. GENERAL: The patient is comfortable lying in the bed, not in acute distress. HEENT: Head is normocephalic, atraumatic. Oral cavity moist, pink. NECK: Supple, no JVD, no carotid bruit. Trachea midline. CHEST: Bilateral breath sounds. No crackles or wheezing. HEART: S1, S2 within normal limits. Regular rhythm. No murmur, no gallop. ABDOMEN: Soft, nontender, nondistended. Bowel sounds present. EXTREMITIES: No cyanosis, no clubbing, no edema. NEUROLOGIC: Alert, and awake. Slow to respond. LABORATORY DATA: Current lab shows WBC count is 6800, hemoglobin 14.2, hematocrit 43.9, platelets are 257,000, neutrophils 53%. Sodium 139, potassium 3.6, chloride 105, bicarbonate is 23, BUN is 14, creatinine 0.7, glucose is 104. RPR nonreactive. IMPRESSION: 1. Agitation. 2. Hypertension, well controlled. 3. Dementia. 4. Schizophrenia. 5. Bipolar disorder. PLAN AND RECOMMENDATIONS: We will continue same medication and treatment plan. We will follow up as per psychiatric consultation. JOB# [id number]
--- NOTE | 2018-07-31 07:26 | Progress Notes ---
DATE: 07/30/2018 SUBJECTIVE: Chart reviewed and the patient interviewed. Also discussed the patient's condition with the staff and reviewed records and labs. The patient continued to be confused and in irritable mood. The patient also is restless. The patient also took off his gown and he was almost getting out of the gurney chair while I was talking to him because of his restlessness and anxiety. Also has difficulty sleeping at night. The patient also is not able to follow directions. He also is restless and he is resisting care. ASSESSMENT: The patient is still agitated and is still psychotic. TREATMENT PLAN: We will continue to monitor his behavior and his condition closely. Also, we will increase Zyprexa to 7.5 mg at bedtime. Also, we will add Zyprexa 2.5 mg during the day and continue to monitor his behavior and his condition closely. JOB# [id number]
--- NOTE | 2018-07-31 08:52 | Psychiatric Evaluation ---
DATE OF SERVICE: PATIENT'S AGE: 72-year-old. SEX: Male. PHYSICIAN: Dr. Sands. CHIEF COMPLAINT: Agitation and aggressive behavior. HISTORY OF PRESENT ILLNESS: The patient is a 72-year-old male who was transferred from [facility] because of increased confusion and agitation. The patient has been aggressive and has been having confrontation with the staff in the facility and unable to follow any directions. The patient also has been refusing to take any psychotropic medications. He also has been having difficulty following any of staff directions. PAST PSYCHIATRIC HISTORY: The patient has a history of agitation and psychosis and the patient is taking Lexapro and Zyprexa. PAST MEDICAL HISTORY: The patient has a history of hypertension. SOCIAL HISTORY: The patient lives in [facility]. No known alcohol or drug use. ALLERGIES: No known allergies. MENTAL STATUS EXAMINATION: The patient appears slightly older than his stated age. Anxious. Confused. Thought processes are disorganized. The patient denied any auditory or visual hallucinations, but actively responding to stimuli. The patient is alert but seems to be disoriented to situation and place. Impaired immediate and recent memory, but intact remote memories. Poor insight and poor judgment. ASSESSMENT: PRIMARY DIAGNOSIS: Unspecified psychosis. SECONDARY DIAGNOSIS: Dementia, moderate. MEDICAL DIAGNOSIS: Hypertension. TREATMENT PLAN: We will monitor the patient's behavior and condition closely. Also, we will start individual as well as milieu psychotherapy. Also, we will continue his Zyprexa and Lexapro and will adjust the dose. ESTIMATED LENGTH OF STAY: 5-7 days. THE PATIENT'S STRENGTHS AND WEAKNESSES: The patient's strength is that he is in relatively fair health. Weaknesses are his ineffective coping and poor impulse control and his confusion. AFTER DISCHARGE PLAN: Outpatient treatment and followup will continue as an outpatient. CRITERIA FOR DISCHARGE: The patient will be having better impulse control and less agitated and less confused. JOB# [id number]
[2018-07-31] MEDS: Multivitamin Tab PO SCH (09:03)
[2018-07-31] MEDS: Escitalopram Oxalate 5 mg Tab PO SCH (09:03)
--- NOTE | 2018-07-31 14:29 | Infectious Disease Prog Note ---
Infectious Disease Subjective - Review of Systems Service Date: 07/31/18 Subjective: Patient had developed chest pain this am , ekg and troponin ordered, currently, chest pain free. Infectious Disease Objective - Results Result Diagrams: 07/29/18 17:42 07/29/18 17:42 Recent Labs: Laboratory Last Values WBC 6.8 Th/cmm (4.8-10.8) 07/29/18 17:42 RBC 4.82 Mil/cmm (3.80-5.80) 07/29/18 17:42 Hgb 14.2 gm/dL (12-16) 07/29/18 17:42 Hct 43.9 % (41.0-60) 07/29/18 17:42 MCV 91.0 fl (80-99) 07/29/18 17:42 MCH 29.4 pg (27.0-31.0) 07/29/18 17:42 MCHC Differential 32.4 pg (28.0-36.0) 07/29/18 17:42 RDW 13.9 % (11.5-20.0) 07/29/18 17:42 Plt Count 257 Th/cmm (150-400) 07/29/18 17:42 MPV 8.1 fl 07/29/18 17:42 Neutrophils % 52.9 % (40.0-80.0) 07/29/18 17:42 Lymphocytes % 33.1 % (20.0-50.0) 07/29/18 17:42 Monocytes % 11.5 % (2.0-10.0) H 07/29/18 17:42 Eosinophils % 1.3 % (0.0-5.0) 07/29/18 17:42 Basophils % 1.2 % (0.0-2.0) 07/29/18 17:42 Sodium 139 mEq/L (136-145) 07/29/18 17:42 Potassium 3.6 mEq/L (3.5-5.1) 07/29/18 17:42 Chloride 105 mEq/L (98-107) 07/29/18 17:42 Carbon Dioxide 23.4 mEq/L (21.0-31.0) 07/29/18 17:42 Anion Gap 14.2 (7.0-16.0) 07/29/18 17:42 BUN 14 mg/dL (7-25) 07/29/18 17:42 Creatinine 0.7 mg/dL (0.7-1.3) 07/29/18 17:42 Est GFR ( Amer) TNP 07/29/18 17:42 Est GFR (Non-Af Amer) TNP 07/29/18 17:42 BUN/Creatinine Ratio 20.0 07/29/18 17:42 Glucose 104 mg/dL (70-105) 07/29/18 17:42 Calcium 9.2 mg/dL (8.6-10.3) 07/29/18 17:42 Total Bilirubin 0.7 mg/dL (0.3-1.0) 07/29/18 17:42 AST 20 U/L (13-39) 07/29/18 17:42 ALT 16 U/L (7-52) 07/29/18 17:42 Alkaline Phosphatase 68 U/L (34-104) 07/29/18 17:42 Troponin I 0.03 ng/mL (0.01-0.05) 07/31/18 06:40 Total Protein 6.5 gm/dL (6.0-8.3) 07/29/18 17:42 Albumin 3.7 gm/dL (4.2-5.5) L 07/29/18 17:42 Globulin 2.8 gm/dL 07/29/18 17:42 Albumin/Globulin Ratio 1.3 (1.0-1.8) 07/29/18 17:42 Triglycerides 56 mg/dL (<150) 07/29/18 17:42 Cholesterol 98 mg/dL (<200) 07/29/18 17:42 LDL Cholesterol Direct 53 mg/dL (75-193) L 07/29/18 17:42 HDL Cholesterol 35 mg/dL (23-92) 07/29/18 17:42 TSH 1.18 uIU/ml (0.34-5.60) 07/29/18 17:42 Salicylates < 25.0 mg/L (30.0-100.0) L 07/29/18 17:42 Acetaminophen < 10.0 ug/mL (10.0-30.0) L 07/29/18 17:42 Ethyl Alcohol < 10 mg/dL (0-10) 12/18/18 17:42 RPR NONREACTIVE (NONREACTIVE) 07/29/18 17:42 - Physical Exam Vitals and I&O: Vital Signs Temp 97.6 F 07/31/18 06:38 Pulse 65 07/31/18 06:38 Resp 19 07/31/18 06:38 BP 108/75 07/31/18 06:38 Pulse Ox 98 07/31/18 06:38 Intake & Output 07/30/18 07/31/18 07/31/18 18:59 06:59 18:59 Intake Total 240 Balance 240 Intake: Oral 240 Other: # Voids 3 2 # Bowel Movements 0 1 Active Medications: Current Medications Acetaminophen (Tylenol) 650 mg PO Q4HR PRN PRN Reason: Mild Pain / Temp above 100 Stop: 09/27/18 21:31 Al Hydrox/Mg Hydrox/Simethicone (Maalox) 30 ml PO Q4HR PRN PRN Reason: GI DISTRESS Stop: 09/27/18 21:31 Escitalopram Oxalate (Lexapro) 5 mg PO DAILY ASHLEY; Protocol Stop: 09/28/18 08:59 Last Admin: 07/31/18 09:03 Dose: 5 mg Lorazepam (Ativan) 0.5 mg PO Q4HR PRN; Protocol PRN Reason: Anxiety Stop: 08/28/18 21:31 Last Admin: 07/31/18 09:05 Dose: 0.5 mg Magnesium Hydroxide (Milk Of Magnesia) 30 ml PO HS PRN PRN Reason: Constipation Multivitamins/Vitamin C (Theragran) 1 tab PO DAILY ASHLEY Stop: 09/28/18 08:59 Last Admin: 07/31/18 09:03 Dose: 1 tab Olanzapine (Zyprexa) 7.5 mg PO DAILY ASHLEY; Protocol Stop: 09/29/18 08:59 Last Admin: 07/31/18 09:04 Dose: Not Given Olanzapine (Zyprexa) 2.5 mg PO DAILY ASHLEY; Protocol Stop: 09/29/18 08:59 Last Admin: 07/31/18 09:04 Dose: Not Given Zolpidem Tartrate (Ambien) 5 mg PO HS PRN PRN Reason: Insomnia Stop: 09/27/18 21:31 Last Admin: 07/30/18 22:31 Dose: 5 mg General: no acute distress, cachectic HEENT: atraumatic, normocephalic, PERRLA Neck: supple, no thyromegaly Cardiovascular: S1S2, regular Lungs: clear to auscultation bilaterally, clear to percussion Abdomen: soft, no tender, no distended Extremities: no cyanosis, no clubbing, no edema Neurological: awake, alert, oriented Skin: intact Infectious Disease Assmt/Plan - Assessment Assessment: 1. Agitation. 2. Hypertension, well controlled. 3. Dementia. 4. Schizophrenia. 5. Bipolar disorder. - Plan Plan: Cardiology consult Dr Saba Palmer.EKG, troponin q 8
[2018-08-01] MEDS: Escitalopram Oxalate 5 mg Tab PO SCH (09:41)
[2018-08-01] MEDS: Multivitamin Tab PO SCH (09:41)
[2018-08-02] MEDS: Multivitamin Tab PO SCH (09:09)
[2018-08-02] MEDS: Escitalopram Oxalate 5 mg Tab PO SCH (09:09)
[2018-08-03] MEDS: Multivitamin Tab PO SCH (08:31)
[2018-08-03] MEDS: Escitalopram Oxalate 5 mg Tab PO SCH (08:31)
--- NOTE | 2018-08-03 08:45 | Progress Notes ---
DATE: 08/02/[address] Sands. A 72-year-old male brought in here from [facility]. The patient is aggressive, irritable, agitated. Today on [id number] evaluation, the patient is thumping his hands on the Linda chair and irritable, agitated, refusing to be interviewed. CURRENT MEDICATION REGIMEN: He is on Lexapro 5 mg, lorazepam ____ mg as needed, olanzapine 2.5 mg in the morning and 7.5 at nighttime with Ambien as needed. Today, the patient is irritable, agitated, thumping his hands on Linda chair. ASSESSMENT AND PLAN: A 72-year-old male who presents very irritable, agitated, ____. We will continue with current medication regimen. JOB# [id number]
--- NOTE | 2018-08-03 09:59 | Diagnostic Imaging Report ---
Right third (middle) finger (3 views) HISTORY: Pain Evaluation of the DIP and PIP joint spaces limited due to flexion. No definite acute bony abnormalities. No definite fractures. IMPRESSION: 1. Limited exam due to flexion 2. No definite acute abnormalities. In the presence of recent trauma and persistent symptoms, a repeat radiograph in 5-7 days may be helpful for detection of a subtle or occult fracture.
--- NOTE | 2018-08-03 18:51 | Progress Notes ---
DATE: 08/01/2018 SUBJECTIVE: Chart reviewed and the patient interviewed. Also discussed the patient's condition with the staff and reviewed records and labs. The patient is still anxious and is still in irritable mood. The patient also is confused. The patient also is still restless and still needs a lot of monitoring. The patient also is trying to get off a gurney chair and is still resisting care. Otherwise, the patient is compliant with taking medications with no side effects of medications. ASSESSMENT: The patient is still agitated and is still psychotic. TREATMENT PLAN: Continue to monitor behavior and condition closely. Also, continue to work on behavioral modifications and his irritability and his agitation and continue to follow up closely. [facility]# [id number]
--- NOTE | 2018-08-03 19:37 | Progress Notes ---
DATE: 08/03/[address] Sands. Nursing staff noted the patient had a swollen right hand second digit. Today on evaluation, it is observed to be erythematous and also swollen, becomes very irritable, restless and being on the Linda chair. ASSESSMENT AND PLAN: The patient long continues to be stressful, severe affective, resulting in self-injurious behavior as evident by the patient being on a Linda chair. We will check x-ray to rule out any fracture. JOB# [id number]
[2018-08-04] MEDS: Escitalopram Oxalate 5 mg Tab PO SCH (08:53)
[2018-08-04] MEDS: Multivitamin Tab PO SCH (08:53)
--- NOTE | 2018-08-05 12:44 | Discharge Summary ---
DATE OF DISCHARGE: 08/04/2018 FINAL DIAGNOSIS: Unspecified psychosis. PRIMARY DIAGNOSIS: Unspecified psychosis. SECONDARY DIAGNOSIS: Dementia, moderate. MEDICAL DIAGNOSIS: Hypertension. REASON FOR HOSPITALIZATION: The patient was admitted to the hospital because of agitation and aggressive behavior. HOSPITAL COURSE: The patient continued to be anxious and irritable mood and slightly agitated. The patient also is suspicious and paranoid. The patient was started on Zyprexa and the dose given an output 2.5 mg in the morning and 7.5 mg at bedtime. Also, continue to take Lexapro 5 mg every morning. Gradually, the patient's affect was brighter. The patient was less depressed and less agitated and she was able to follow directions to comply with taking medications. Physical examination of the patient was basically within normal and the patient had no major medical problems while in the hospital. AFTER DISCHARGE PLANS: [facility] with plans for outpatient treatment there. EXPECTED OUTCOME AFTER DISCHARGE: Fair if the patient continued to take psychotropic medications and follow up with discharge plans. [facility]# [id number]
== END 2018-08-04 12:10 | DRG 885 ==
LOC: ER 16:42 → GERO2 19:15
PROVIDERS: ADMIT Psychiatry & Neurology Psychiatry; ATTEND Psychiatry & Neurology Psychiatry
DX: F29 Unspecified psychosis not due to a substance or known physiological condition (principal); I10 Essential (primary) hypertension; F03.90 Unspecified dementia, unspecified severity, without behavioral disturbance, psychotic disturbance, mood disturbance, and anxiety; F31.9 Bipolar disorder, unspecified; F20.9 Schizophrenia, unspecified; Z82.49 Family history of ischemic heart disease and other diseases of the circulatory system
CPT/HCPCS: 36415-UA; 71045-TC; 73140-TC-F7; 80053-TC; 80061-TC; 80320-TC; 80329-TC; 83036-90; 84443-TC; 84484-TC; 85025-TC; 86592-TC; 93005; J7051; Z7610